=== PATIENT | male | born 1950 | race Asian ===

== ENCOUNTER 2018-08-31 16:31 | Emergency (ER) | payer MEDICARE, OTHER ==
[~2018-08-31] VITALS: Ht 175.3 cm; Wt 81.6 kg
[~2018-08-31 16:31] MED LIST: HUMALOG100 U/ML SQ; LANTUS SOLOS100 U/M1 SQ; LIPI20; LOSARTAN POTASS25 M1; METFORMIN HCL1000 MG; PRILOSEC20 MG; VIAGRA100 MG PO
[2018-08-31 17:59] VITALS: Ht 175.3 cm; Wt 81.6 kg
[2018-08-31 19:45] VITALS: BP 130/72
== END 2018-08-31 19:40 | disposition home or self-care (01) ==
LOC: ED 16:31
DX: S93.402A Sprain of unspecified ligament of left ankle, initial encounter (principal); S30.0XXA Contusion of lower back and pelvis, initial encounter; E11.9 Type 2 diabetes mellitus without complications; W01.0XXA Fall on same level from slipping, tripping and stumbling without subsequent striking against object, initial encounter; Y93.01 Activity, walking, marching and hiking; Y92.512 Supermarket, store or market as the place of occurrence of the external cause; Y99.8 Other external cause status